=== PATIENT | male | born 1985 | race Caucasian/White ===

== ENCOUNTER 2024-09-11 07:16 | Emergency (ER) | payer OTHER ==
[~2024-09-11] VITALS: Ht 170.2 cm; Wt 91.0 kg
[2024-09-11 07:28] VITALS: TEMP 98.7
[2024-09-11 07:45] LABS: HEMATOCRIT 46.9 % (41-53); HEMOGLOBIN 16.5 g/dL (13.5-17.5); MEAN CORPUSCULAR HGB CONC 35.2 G/dL (31.0-37.0); MEAN CORPUSCULAR VOLUME 91 fL (80-100); PLATELET COUNT (AUTO) 254 K/uL (150-450); RED BLOOD CELL COUNT(AUTO) 5.16 MIL/uL (4.50-5.90); RED CELL DISTRIBUTION WIDTH 11.9 % (11.5-14.5); WHITE BLOOD COUNT (AUTO) 5.6 K/uL (4.5-11.0)
[2024-09-11 07:53] LABS: ANION GAP 17 mmol/L (8-16); CALCIUM, TOTAL 8.1 mg/dL (8.8-10.5); CARBON DIOXIDE 21 mmol/L (22-29); CHLORIDE 102 mmol/L (98-107); CREATININE 0.61 mg/dL (0.60-1.30); GLOMERULAR FILTR. RATE CALC > 60 mL/min (>60); GLUCOSE,RANDOM 305 mg/dL (70-110); POTASSIUM 3.6 mmol/L (3.5-5.1); SODIUM SERUM 140 mmol/L (136-145); UREA NITROGEN, BLOOD 6 mg/dL (7-18)
[2024-09-11 08:02] LABS: ALBUMIN 3.8 g/dL (3.4-5.0); ALKALINE PHOSPHATASE 116 U/L (46-116); ASPARTATE AMINOTRANSFERASE 52 U/L (15-37); BILIRUBIN,TOTAL 0.4 mg/dL (0.1-1.0); TOTAL PROTEIN, SERUM 7.8 g/dL (6.4-8.2)
[2024-09-11 08:15] LABS: BAND NEUTROPHILS % (MANUAL) 0 % (0-5)
[2024-09-11 08:16] LABS: EOSINOPHILS % (MANUAL) 1 % (1-6); LYMPHOCYTES % (MANUAL) 63 % (22-44); MONOCYTES % (MANUAL) 2 % (2-9); RBC MORPHOLOGY COMMENT NORMAL RBC MORPH; SEGMENTED NEUTROPHILS % 34 % (40-70); TOTAL CELLS COUNTED 100
[2024-09-11 08:38] LABS: ALANINE AMINOTRANSFERASE 117 U/L (12-78)
[2024-09-11 08:47] LABS: ALCOHOL, BLOOD (SERUM) 468 mg/dL (0-10)
[2024-09-11 09:16] VITALS: BP 117/67; PULSE 90; RESP 20; O2SAT 99
== END 2024-09-11 11:53 | disposition left against medical advice (07) ==
LOC: EMS 07:19
DX: F10.129 Alcohol abuse with intoxication, unspecified (principal); R44.0 Auditory hallucinations; Y90.8 Blood alcohol level of 240 mg/100 ml or more
CPT/HCPCS: 99291; 80053; 85025; 36415; G0480

== ENCOUNTER 2024-10-16 00:44 | Emergency (ER) | payer OTHER ==
[~2024-10-16] VITALS: Ht 167.6 cm; Wt 95.0 kg
[2024-10-16 01:01] VITALS: BP 130/90; PULSE 88; RESP 16; TEMP 98; O2SAT 100
== END 2024-10-16 02:00 ==
LOC: EMS 00:44 → EDUNIT# 00:44 → EMS 02:00
DX: Z02.89 Encounter for other administrative examinations (principal); F10.129 Alcohol abuse with intoxication, unspecified; Y90.9 Presence of alcohol in blood, level not specified
CPT/HCPCS: 99283; Z7502